=== PATIENT | male | born 1980 | race Caucasian/White ===

== ENCOUNTER 2021-12-04 03:28 | Emergency (ER) | payer SELFPAY ==
[2021-12-04 05:29] LABS: HEMOGLOBIN 16.1 gm/dl (14.0-17.5); RED BLOOD COUNT 5.52 M/UL (4.20-5.50); WHITE BLOOD COUNT 15.7 K/UL (4.5-11.0)
[2021-12-04 05:43] LABS: BUN/CREATININE RATIO 20 (0-10)
[2021-12-04] MEDS ORDERED: ZOFRAN 4 MG TAB4 MG PO (08:32)
[2021-12-04] MEDS ORDERED: PROTONIX 40 MG40 M1 PO (08:38)
== END 2021-12-04 09:14 | disposition home or self-care (01) ==
LOC: ER1 03:28
PROVIDERS: Physician Assistant
DX: K29.70 Gastritis, unspecified, without bleeding (principal); K52.9 Noninfective gastroenteritis and colitis, unspecified; R91.1 Solitary pulmonary nodule; Z88.0 Allergy status to penicillin
CPT/HCPCS: 80053; 81001; 82150; 82550; 82553; 83605; 83690; 84484; 85025; 87086; 96374; 96375; 99284; J1885; J2405; Q9967